=== PATIENT | male | born 1990 | race Caucasian/White ===

== ENCOUNTER 2017-01-24 19:06 | Emergency (ER) | payer OTHER ==
[2017-01-24 19:23] VITALS: BP 142/80; PULSE 77; RESP 20; TEMP 98.6
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
--- NOTE | 2017-01-24 20:09 | ED ---
Medical Decision Making - Medical Decision Making Hematoma of left parietal temporal scalp. Concussion with brief loss of consciousness. CT brain with evidence of hematoma to left parietal temporal scalp otherwise negative. Patient instructed to follow-up with Dr. Babatunde Muniz in next 1-2 days. Patient instructed to return to the emergency department with any new or worsening neurological changes. Patient agrees with treatment plan. Discharge instructions and return parameters reviewed. Disposition Clinical Impression: Concussion with loss of consciousness, Hematoma of scalp Disposition: HOME SELF-CARE Condition: Good Instructions: Concussion (ED), Post Concussion Syndrome (ED), Scalp Contusion in Adults (ED) Additional Instructions: Please return to the emergency department with increased headache, nausea, vomiting, drowsiness, or any other concerning symptoms. Please establish primary care physician for follow-up. May continue Tylenol for headache. Referrals: Babatunde Muniz MD [STAFF PHYSICIAN] - 1-2 days
== END 2017-01-24 20:14 | disposition home or self-care (01) ==
LOC: EC 19:06
DX: S06.0X1A Concussion with loss of consciousness of 30 minutes or less, initial encounter (principal); F17.200 Nicotine dependence, unspecified, uncomplicated; W20.8XXA Other cause of strike by thrown, projected or falling object, initial encounter; Y93.89 Activity, other specified
CPT/HCPCS: 70450; 99283

== ENCOUNTER → 2021-08-20 | Outpatient (CLI) | payer OTHER ==
--- NOTE | 2021-08-25 13:28 | HM ---
HOLTER MONITOR REPORT No diary was provided. Predominant rhythm appears to be sinus with a heart rate ranging from 75 to 150 beats per minute. Average heart rate of 93 beats per minute. Sinus rhythm and sinus tachycardia were noted. Rare isolated PVCs were noted. There was no evidence of any Sukhjinder arrhythmia. No diary was provided. FINAL IMPRESSION: Predominant rhythm is sinus with average heart rate of 93 beats per minute. Sinus tachycardia was noted. Rare PACs and PVCs were noted. No bradyarrhythmia. No diary was provided. MMODL / IJN: [id number] /
== END | disposition home or self-care (01) ==
LOC: RADECHMAIN 07:52
PROVIDERS: ATTEND Family Medicine
DX: I49.3 Ventricular premature depolarization (principal); I49.1 Atrial premature depolarization; E11.9 Type 2 diabetes mellitus without complications; R53.1 Weakness
CPT/HCPCS: 93225; 93226

== ENCOUNTER → 2021-09-15 | Outpatient (CLI) | payer OTHER ==
--- NOTE | 2021-09-15 20:00 | EST ---
EXERCISE STRESS DATE OF STUDY: 09/15/2021 AGE: 30 SEX: M HT: 5'5" WT: 158 lbs. PROTOCOL: Jagdeep STAGE: 4 DURATION OF EXERCISE: 10:00 HEART RATE REST: 91 BLOOD PRESSURE REST: 115/71 MAXIMUM HEART RATE ACHIEVED: 164 MAXIMUM BLOOD PRESSURE: 152/77 85% MPHR: 160 100% MPHR: 188 METS: 12.1 INDICATIONS: Chest pain. CLINICAL INFORMATION: STRESS DATA: Heart rate is 91, pressure is 115/77 mmHg. Baseline EKG showed sinus mechanism. The patient exercised on the treadmill according to Jagdeep protocol for a total of 10 minutes and achieved 12.1 METS. Max heart rate was 164, which is about 88% of maximum predicted heart rate, with maximum blood pressure of 152/77 mmHg. Clinically the patient did not have any symptoms of chest pain or chest discomfort during the testing or on recovery. The EKG did not show any significant ST or T-wave abnormalities concerning for ischemia. CONCLUSION: 1. Excellent exercise tolerance. 2. Normal EKG in response to exercise. 3. Essentially normal stress test for the patient. MMODL / IJN: [id number] /
== END | disposition home or self-care (01) ==
LOC: RADNMMAIN 08:49
PROVIDERS: ATTEND Family Medicine
DX: E11.9 Type 2 diabetes mellitus without complications (principal); R07.9 Chest pain, unspecified; R53.1 Weakness
CPT/HCPCS: 93017